=== PATIENT | female | born 1985 | race Caucasian/White ===

== ENCOUNTER 2020-12-16 11:30 | Inpatient (IN) | payer OTHER ==
[~2020-12-16] VITALS: Ht 165.1 cm; Wt 90.7 kg
[2020-12-16 12:26] LABS: HEMOGLOBIN 11.1 gm/dl (12.3-15.3); RED BLOOD COUNT 4.83 M/UL (4.00-5.10); WHITE BLOOD COUNT 9.8 K/UL (4.5-11.0)
[2020-12-16 12:46] LABS: BUN/CREATININE RATIO 14 (0-10)
[2020-12-16] MEDS ORDERED: TUMS200 MG PO (21:03)
[2020-12-16] MEDS ORDERED: IBUPROFEN200 MG PO (21:05)
[2020-12-17 01:17] LABS: HEMOGLOBIN 9.8 gm/dl (12.3-15.3); RED BLOOD COUNT 4.47 M/UL (4.00-5.10); WHITE BLOOD COUNT 11.6 K/UL (4.5-11.0)
[2020-12-17 01:38] LABS: BUN/CREATININE RATIO 16 (0-10)
[2020-12-18 02:11] LABS: RED BLOOD COUNT 4.11 M/UL (4.00-5.10); WHITE BLOOD COUNT 9.1 K/UL (4.5-11.0)
[2020-12-18 03:43] LABS: BUN/CREATININE RATIO 22 (0-10)
[2020-12-18] MEDS ORDERED: ASPIRIN EC81 MG PO (12:43)
[2020-12-18] MEDS ORDERED: BRILINTA 90 MG90 MG PO (12:43)
[2020-12-18] MEDS ORDERED: FERROUS SULFAT325 M2 PO (12:43)
[2020-12-18] MEDS ORDERED: ATENOLOL25 MG PO (12:43)
[2020-12-18] MEDS ORDERED: LISINOPRIL5 MG PO (12:43)
[2020-12-18] MEDS ORDERED: LIPITOR40 MG PO (12:43)
== END 2020-12-18 13:14 | disposition home or self-care (01) | DRG 247 ==
LOC: ER1 11:30 → CDU 13:10 → PROG CARE 18:56
PROVIDERS: Emergency Medicine; Internal Medicine Interventional Cardiology; Physician Assistant; ADMIT Internal Medicine
PROC: B24BZZ4 Ultrasonography of Heart with Aorta, Transesophageal (ICD-10-PCS; principal; 2020-12-16)
PROC: 027036Z Dilation of Coronary Artery, One Artery with Three Drug-eluting Intraluminal Devices, Percutaneous Approach (ICD-10-PCS; 2020-12-16)
PROC: 4A023N7 Measurement of Cardiac Sampling and Pressure, Left Heart, Percutaneous Approach (ICD-10-PCS; 2020-12-16)
PROC: B2111ZZ Fluoroscopy of Multiple Coronary Arteries using Low Osmolar Contrast (ICD-10-PCS; 2020-12-16)
PROC: B2151ZZ Fluoroscopy of Left Heart using Low Osmolar Contrast (ICD-10-PCS; 2020-12-16)
DX: I21.4 Non-ST elevation (NSTEMI) myocardial infarction (principal); I95.9 Hypotension, unspecified; D50.9 Iron deficiency anemia, unspecified; G83.89 Other specified paralytic syndromes; E87.6 Hypokalemia; K21.9 Gastro-esophageal reflux disease without esophagitis; G43.909 Migraine, unspecified, not intractable, without status migrainosus; Z20.822 Contact with and (suspected) exposure to COVID-19; E66.9 Obesity, unspecified; F17.210 Nicotine dependence, cigarettes, uncomplicated; Z79.82 Long term (current) use of aspirin; Z79.01 Long term (current) use of anticoagulants; Z88.6 Allergy status to analgesic agent; Z83.79 Family history of other diseases of the digestive system; Z98.51 Tubal ligation status; Z68.37 Body mass index [BMI] 37.0-37.9, adult
CPT/HCPCS: ECHO; 36415; 71045; 80048; 80053; 80061; 82550; 82553; 82728; 82962; 83540; 83550; 83735; 83874; 84484; 84703; 85025; 85347; 85610; 85730; 93005; 93306; 99152; 99153; 99285; C1769; C1874; C9600; J1644; J2250; J2370; J3010; J7040; Q9967; U0002

== ENCOUNTER 2021-03-29 21:08 | Emergency (ER) | payer OTHER ==
[~2021-03-29 21:08] MED LIST: ASPIRIN EC81 MG PO; ATENOLOL25 MG PO; BRILINTA 90 MG90 MG PO; FERROUS SULFAT325 M2 PO; IBUPROFEN200 MG PO; LIPITOR40 MG PO; LISINOPRIL5 MG PO; TUMS200 MG PO
[2021-03-29 21:47] LABS: HEMOGLOBIN 11.1 gm/dl (12.3-15.3); RED BLOOD COUNT 3.91 M/UL (4.00-5.10); WHITE BLOOD COUNT 9.6 K/UL (4.5-11.0)
[2021-03-29 21:59] LABS: BUN/CREATININE RATIO 19 (0-10)
[2021-03-29] MEDS ORDERED: LYSTEDA650 MG PO (23:29)
== END 2021-03-30 02:35 | disposition home or self-care (01) ==
LOC: ER1 21:08
PROVIDERS: Physician Assistant
DX: N93.8 Other specified abnormal uterine and vaginal bleeding (principal); D64.9 Anemia, unspecified; F17.200 Nicotine dependence, unspecified, uncomplicated
CPT/HCPCS: 80053; 84702; 85025; 99284

== ENCOUNTER 2021-10-25 07:14 | Emergency (ER) | payer OTHER ==
[~2021-10-25 07:14] MED LIST changes: +LYSTEDA650 MG PO
[2021-10-25 08:24] LABS: HEMOGLOBIN 9.9 gm/dl (12.3-15.3); RED BLOOD COUNT 4.49 M/UL (4.00-5.10); WHITE BLOOD COUNT 9.2 K/UL (4.5-11.0)
[2021-10-25 09:05] LABS: BUN/CREATININE RATIO 9 (0-10)
[2021-10-25] MEDS ORDERED: MACROBID 100 M100 MG PO (12:10)
== END 2021-10-25 12:40 | disposition home or self-care (01) ==
LOC: ER1 07:14
PROVIDERS: Physician Assistant
DX: R42 Dizziness and giddiness (principal); R19.7 Diarrhea, unspecified; N39.0 Urinary tract infection, site not specified; E78.5 Hyperlipidemia, unspecified; I10 Essential (primary) hypertension; I25.2 Old myocardial infarction; D64.9 Anemia, unspecified; F17.210 Nicotine dependence, cigarettes, uncomplicated; Z79.899 Other long term (current) drug therapy; Z79.82 Long term (current) use of aspirin; Z20.822 Contact with and (suspected) exposure to COVID-19
CPT/HCPCS: 71045; 80053; 81001; 82550; 82553; 84439; 84443; 84484; 85025; 87086; 93005; 99285; U0002

== ENCOUNTER → 2021-12-28 | Day surgery (SDC) | payer OTHER ==
[~2021-12-28] MED LIST changes: +BRILINTA90 MG PO; +COLACE100 MG PO; +FAMOTIDINE40 MG PO; +HEMOCYTE324 MG PO; +MACROBID 100 M100 MG PO; +NAPROSYN EC 50500 MG GT; +PERCOCET 5/325 T1 EA PO; +VITAMIN D325 MCG PO
[2021-12-28 07:32] LABS: HEMOGLOBIN 9.2 gm/dl (12.3-15.3); RED BLOOD COUNT 4.43 M/UL (4.00-5.10); WHITE BLOOD COUNT 9.9 K/UL (4.5-11.0)
[2021-12-28 08:04] LABS: BUN/CREATININE RATIO 18 (0-10)
== END | disposition home or self-care (01) ==
LOC: OR 06:59
PROVIDERS: Obstetrics & Gynecology
DX: N93.9 Abnormal uterine and vaginal bleeding, unspecified (principal); R93.89 Abnormal findings on diagnostic imaging of other specified body structures; E78.5 Hyperlipidemia, unspecified; K21.9 Gastro-esophageal reflux disease without esophagitis; I25.10 Atherosclerotic heart disease of native coronary artery without angina pectoris; Z95.5 Presence of coronary angioplasty implant and graft; Z98.51 Tubal ligation status; Z79.82 Long term (current) use of aspirin; Z79.899 Other long term (current) drug therapy
CPT/HCPCS: 80053; 81001; 85025; 93005; J1100; J1885; J2001; J2250; J2405; J2704; J3010; J7030

== ENCOUNTER → 2022-01-17 | Outpatient (CLI) | payer OTHER | LOC: HEART 5 13:30 | DX: R42 Dizziness and giddiness (principal) ==